=== PATIENT | male | born 1985 | race Caucasian/White ===

== ENCOUNTER 2025-01-15 14:10 | Inpatient (IN) | payer BC ==
[2025-01-15] MEDS: SODIUM CHLORIDE 0.9% 500 ML INFUS.BAG IV ONE ×2 (15:58→17:10)
[2025-01-15] MEDS ORDERED: ONDANSETRON 4 MG/2 ML VIAL ONE (16:01)
[2025-01-15] MEDS ORDERED: FAMOTIDINE 20 MG/50 ML IVPB 20 MG/50 ML MG IVPB ONE (16:01)
[2025-01-15] MEDS: FAMOTIDINE 20 MG/50 ML IVPB 20 MG/50 ML MG IVPB ONE (16:05)
[2025-01-15] MEDS: ONDANSETRON 4 MG/2 ML VIAL IVPUSH ONE (16:05)
[2025-01-15 16:08] LABS: ABSOLUTE IMMATURE GRANULOCYTES 0.04 x10^3/uL (0.0-0.031); BASOPHILS # 0.03 x10^3/uL (0.01-0.08); EOSINOPHIL % 1.3 % (0.8-7.0); EOSINOPHILS # 0.12 x10^3/uL (0.04-0.54); HEMATOCRIT 47.5 % (40.1-51.0); HEMOGLOBIN 15.9 g/dL (13.7-17.5); MCHC 33.5 g/dl (32.3-36.5); MEAN CELL VOLUME 87.8 fl (79.0-92.2); MEAN PLT VOLUME 13.3 fl (9.4-12.4); MONOCYTE # 0.61 x10^3/uL (0.30-0.82); MONOCYTE % 6.5 % (5.3-12.2); PLATELET COUNT 184 x10^3/uL (163-337); RDW 12.2 % (12.0-15.6)
[2025-01-15 16:10] LABS: PH,URINE 6.5 (5.0-8.0); URINE APPEARANCE CLEAR; URINE BILIRUBIN NEGATIVE (NEGATIVE); URINE COLOR YELLOW; URINE GLUCOSE (UA) 3+ (NEGATIVE); URINE KETONE TRACE (NEGATIVE); URINE LEUK ESTERASE NEGATIVE (NEGATIVE); URINE NITRITE NEGATIVE (NEGATIVE); URINE PROTEIN NEGATIVE (NEGATIVE); URINE UROBILINOGEN 0.2 mg/dL (0.2-1.0); VENOUS BASE EXCESS 0.7 mmol/L (-2-2); VENOUS O2 SATURATION 93.5 % (70-80); VENOUS PCO2 36.6 mmHg (38-52); VENOUS PH 7.442 (7.310-7.410)
[2025-01-15 16:39] LABS: CHLORIDE 96 mmol/L (98-107); POTASSIUM 4.7 mmol/L (3.5-5.1); SODIUM 131 mmol/L (136-145)
[2025-01-15 16:41] LABS: CALCIUM 9.8 mg/dL (8.5-10.1)
[2025-01-15 16:42] LABS: ALBUMIN 3.4 g/dl (3.4-5.0); ANION GAP 10 mmol/L (4-13); CO2 25 mmol/L (21-32)
[2025-01-15 16:45] LABS: SGOT/AST 64 U/L (15-37); SGPT/ALT 93 U/L (13-61)
[2025-01-15 16:47] LABS: BILIRUBIN,TOTAL 0.9 mg/dL (0.2-1)
[2025-01-15 16:48] LABS: ALK PHOS 155 U/L (45-117)
[2025-01-15 17:03] LABS: GLUCOSE,RANDOM 580 mg/dL (74-106)
[2025-01-15 17:49] LABS: HIV INTERPRETATION NEGATIVE (NEGATIVE)
[2025-01-15 17:50] LABS: HCV DIAGNOSTIC IN-HOUSE W/RFLX NON-REACTIVE (NONREACTIVE)
[2025-01-15] MEDS ORDERED: METOCLOPRAMIDE HCL INJECTION 10 MG/2 ML VIAL ONE (17:58)
[2025-01-15] MEDS: METOCLOPRAMIDE HCL INJECTION 10 MG/2 ML VIAL IVPB ONE (18:02)
[2025-01-15] MEDS ORDERED: INSULIN ASPART SLIDING SCALE (NOVOLOG) 1 VIAL SQ ONE (20:09)
[2025-01-15] MEDS: SODIUM CHLORIDE 1,000 ML IV STA (20:14)
[2025-01-15] MEDS: INSULIN (NOVOLOG) ASPART 100 UNITS/ML 10ML VIAL SQ ONE (20:14)
[2025-01-15] MEDS ORDERED: INSULIN GLARGINE (LANTUS) 100 UNITS/ML UNITS SQ SCH (22:00)
[2025-01-15] MEDS: SODIUM CHLORIDE 1,000 ML IV SCH (22:16)
[2025-01-15] MEDS: INSULIN ASPART SLIDING SCALE (NOVOLOG) 1 VIAL SQ SCH (22:35)
[2025-01-15] MEDS: INSULIN GLARGINE (LANTUS) 100 UNITS/ML UNITS SQ SCH (22:36)
[2025-01-16 04:20] VITALS: BMI 34.7
[2025-01-16 08:51] LABS: ABSOLUTE IMMATURE GRANULOCYTES 0.02 x10^3/uL (0.0-0.031); BASOPHILS # 0.02 x10^3/uL (0.01-0.08); EOSINOPHIL % 2.4 % (0.8-7.0); EOSINOPHILS # 0.14 x10^3/uL (0.04-0.54); HEMATOCRIT 40.1 % (40.1-51.0); HEMOGLOBIN 13.3 g/dL (13.7-17.5); MCHC 33.2 g/dl (32.3-36.5); MEAN CELL VOLUME 89.3 fl (79.0-92.2); MEAN PLT VOLUME 12.8 fl (9.4-12.4); MONOCYTE # 0.37 x10^3/uL (0.30-0.82); MONOCYTE % 6.4 % (5.3-12.2); PLATELET COUNT 128 x10^3/uL (163-337); RDW 12.2 % (12.0-15.6)
[2025-01-16 09:15] LABS: POTASSIUM 3.6 mmol/L (3.5-5.1)
[2025-01-16] MEDS: PANTOPRAZOLE 20 MG TABLET PO SCH (09:22)
[2025-01-16 09:30] LABS: CREATININE 0.7 mg/dL (0.55-1.3); PHOSPHOROUS 2.3 mg/dL (2.5-4.9)
[2025-01-16 09:31] LABS: BILIRUBIN,TOTAL 0.6 mg/dL (0.2-1); TOT PROT 5.4 g/dl (6.4-8.2)
[2025-01-16 09:43] LABS: BLOOD UREA NITROGEN 13.2 mg/dL (7-18); MAGNESIUM 1.6 mg/dL (1.8-2.4)
[2025-01-16 09:44] LABS: ALBUMIN 2.7 g/dl (3.4-5.0)
[2025-01-16] MEDS ORDERED: ENOXAPARIN NA (PORCINE) 40 MG/0.4 ML DISP.SYRIN SQ SCH (10:00)
[2025-01-16] MEDS: MAGNESIUM 2GM/50ML STERILE WATER IVPB IVPB ONE (11:48)
[2025-01-16] MEDS: NAPH,MB-DB/K PH,MBDB POWDER PACKET PO ONE (11:48)
[2025-01-16] MEDS ORDERED: INSULIN GLARGINE (LANTUS) 100 UNITS/ML UNITS SQ SCH (15:45)
[2025-01-16] MEDS: INSULIN GLARGINE (LANTUS) 100 UNITS/ML UNITS SQ SCH (21:07)
[2025-01-17 09:09] LABS: ABSOLUTE IMMATURE GRANULOCYTES 0.02 x10^3/uL (0.0-0.031); BASOPHILS # 0.02 x10^3/uL (0.01-0.08); EOSINOPHIL % 1.9 % (0.8-7.0); EOSINOPHILS # 0.11 x10^3/uL (0.04-0.54); HEMATOCRIT 41.9 % (40.1-51.0); HEMOGLOBIN 13.8 g/dL (13.7-17.5); MCHC 32.9 g/dl (32.3-36.5); MEAN CELL VOLUME 89.1 fl (79.0-92.2); MEAN PLT VOLUME 12.4 fl (9.4-12.4); PLATELET COUNT 131 x10^3/uL (163-337); RDW 12.1 % (12.0-15.6)
[2025-01-17 09:17] LABS: INR 1.1 (0.83-1.09)
[2025-01-17 09:42] LABS: POTASSIUM 3.6 mmol/L (3.5-5.1)
[2025-01-17 09:58] LABS: BILIRUBIN,TOTAL 0.8 mg/dL (0.2-1)
[2025-01-17 10:00] LABS: ALBUMIN 2.7 g/dl (3.4-5.0); CREATININE 0.6 mg/dL (0.55-1.3); TOT PROT 5.7 g/dl (6.4-8.2)
[2025-01-17 10:02] LABS: BLOOD UREA NITROGEN 10.3 mg/dL (7-18)
[2025-01-17 12:04] LABS: HEPATITIS B SURF AG NON-MATERN NON-REACTIVE (NONREACTIVE)
[2025-01-17 20:32] VITALS: RESP 18
[2025-01-17] MEDS: INSULIN GLARGINE (LANTUS) 100 UNITS/ML UNITS SQ SCH (21:57)
[2025-01-18 09:10] LABS: ABSOLUTE IMMATURE GRANULOCYTES 0.02 x10^3/uL (0.0-0.031); BASOPHILS # 0.02 x10^3/uL (0.01-0.08); EOSINOPHILS # 0.11 x10^3/uL (0.04-0.54); HEMATOCRIT 42.1 % (40.1-51.0); HEMOGLOBIN 14.1 g/dL (13.7-17.5); MCHC 33.5 g/dl (32.3-36.5); MEAN CELL VOLUME 88.3 fl (79.0-92.2); MEAN PLT VOLUME 12.8 fl (9.4-12.4); MONOCYTE # 0.49 x10^3/uL (0.30-0.82); MONOCYTE % 9.1 % (5.3-12.2); PLATELET COUNT 130 x10^3/uL (163-337); RDW 12.1 % (12.0-15.6)
[2025-01-18 09:46] LABS: POTASSIUM 3.5 mmol/L (3.5-5.1)
[2025-01-18 09:50] LABS: CALCIUM 9.1 mg/dL (8.5-10.1)
[2025-01-18 09:52] LABS: ALBUMIN 2.7 g/dl (3.4-5.0); BLOOD UREA NITROGEN 10.6 mg/dL (7-18)
[2025-01-18 09:54] LABS: CREATININE 0.6 mg/dL (0.55-1.3)
[2025-01-18 09:56] LABS: BILIRUBIN,TOTAL 0.9 mg/dL (0.2-1); TOT PROT 5.8 g/dl (6.4-8.2)
[2025-01-18 14:52] VITALS: BP 122/75; PULSE 92; TEMP 98
[2025-01-21 08:08] LABS: THYROID STIM IMMUNOGLOBULIN 0.32 IU/L (0.00-0.55)
== END 2025-01-18 14:30 | disposition home or self-care (01) | DRG 639 ==
LOC: JER 14:10 → JERBED 16:23 → OBSVTOIN 19:35 → J6S 22:05
PROVIDERS: ADMIT Internal Medicine; ATTEND Internal Medicine
PROC: 0DB28ZX Excision of Middle Esophagus, Via Natural or Artificial Opening Endoscopic, Diagnostic (ICD-10-PCS; 2025-01-17)
PROC: 0DB38ZX Excision of Lower Esophagus, Via Natural or Artificial Opening Endoscopic, Diagnostic (ICD-10-PCS; principal; 2025-01-17 11:45)
DX: E11.00 Type 2 diabetes mellitus with hyperosmolarity without nonketotic hyperglycemic-hyperosmolar coma (NKHHC) (principal); R79.89 Other specified abnormal findings of blood chemistry; R74.01 Elevation of levels of liver transaminase levels; K76.0 Fatty (change of) liver, not elsewhere classified; E05.90 Thyrotoxicosis, unspecified without thyrotoxic crisis or storm; K44.9 Diaphragmatic hernia without obstruction or gangrene; R13.14 Dysphagia, pharyngoesophageal phase; J35.8 Other chronic diseases of tonsils and adenoids; K21.9 Gastro-esophageal reflux disease without esophagitis; G47.33 Obstructive sleep apnea (adult) (pediatric)
CPT/HCPCS: 36415; 70491-TC; 71046-TC-FY; 71260-TC; 74220-TC-FY; 76705-TC; 80053; 80061; 81003; 82010; 82550; 82803; 82962; 82977; 83036; 83516; 83735; 83930; 84100; 84439; 84443; 84445; 84481; 85025; 85610; 86038; 86376; 86704; 86708; 86780; 86800; 86803; 87086; 87340; 87389; 87517; 87651; 88305-TC; 99285-25; G0378; Q9967